=== PATIENT | male | born 1995 | race Hispanic/Latino ===

== ENCOUNTER 2018-12-25 10:45 | Emergency (ER) | payer MEDICAID, OTHER ==
[2018-12-25 10:52] VITALS: BP 136/67
[2018-12-25] MEDS ORDERED: TORADOL IM ONE (11:09)
--- NOTE | 2018-12-25 11:13 | Emergency Department Report ---
ED Back Pain/Injury HPI - General Chief Complaint: Back Pain/Injury Stated Complaint: TAIL BONE EXTREME PAIN Time Seen by Provider: 12/25/18 11:05 Source: patient Limitations: No Limitations - History of Present Illness Initial Comments: Patient is a 23-year-old male who comes to the ER today complaining of tailbone pain. He states that it started to hurt last night after he got off his job. 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 He states he had a previous injury 5 years ago to the tailbone when he fell. He denies having to see a doctor or come to the emergency room for this in the past. Patient states that [id number] medicines have not helped including Aleve, Tylenol and ibuprofen. Patient is ambulatory he is nontoxic. He is afebrile. He has no dysuria or other MD Complaint: back pain -: Gradual, days(s) (1) Similar Symptoms Previously: Yes (previous injury 5 y ago;) Place: work Severity: mild Consistency: constant Improves With: none Worsens With: other (work where he pushes carts) Associated Symptoms: denies other symptoms - Related Data Previous Rx's Medication Instructions Recorded Last Taken Type Naproxen [Naprosyn] 500 mg PO BID PRN #20 tablet 12/25/18 Unknown Rx Allergies Allergy/AdvReac Type Severity Reaction Status Date / Time No Known Allergies Allergy Verified 12/25/18 10:45 ED Review of Systems ROS: Stated complaint: TAIL BONE EXTREME PAIN Other details as noted in HPI Comment: All other systems reviewed and negative Constitutional: denies: chills Eyes: denies: eye pain ENT: denies: throat pain Respiratory: denies: cough Cardiovascular: denies: as per HPI, dyspnea on exertion Endocrine: denies: intolerance to cold Genitourinary: denies: dysuria Musculoskeletal: back pain Neurological: denies: weakness Psychiatric: denies: anxiety Hematological/Lymphatic: denies: as per HPI, easy bleeding ED Past Medical Hx Family history: no significant family history ED Back Pain Physical Exam - Exam General: Vital signs noted. No distress. Alert and acting appropriately. Back/Abdomen: No Abdominal Tenderness, No Perithoracic Tenderness, No Perilumbar Tenderness, No Sacroiliac Tenderness, No Flank Tenderness, No Straight Leg Raise Pain Neuro: Yes Normal Sensation, No Motor Weakness, No Normal DTR's, No Normal Gait ED Course Vital Signs 12/25/18 10:51 Temperature 98.2 F Pulse Rate 94 H Respiratory 16 Rate Blood Pressure 136/67 O2 Sat by Pulse 98 Oximetry ED Medical Decision Making - Medical Decision Making tail bone pain p work last pm he pushes carts for work previous injury to area no new trauma otc not helping with pain ambulatory no s/s cauda equina no dysuria no abd pain VSS without fever no abscess over area toradol IM dc home with dc plan of care Critical care attestation.: If time is entered above; I have spent that time in minutes in the direct care of this critically ill patient, excluding procedure time. ED Disposition Clinical Impression: Tail bone pain Disposition: DC-01 TO HOME OR SELFCARE Is pt being admited?: No Does the pt Need Aspirin: No Condition: Stable Instructions: Arthralgia (ED) Additional Instructions: med as ordered today follow up with Dr Richard next week if persists Prescriptions: Naproxen [Naprosyn] 500 mg PO BID PRN #20 tablet PRN Reason: Pain Referrals: [facility] [Outside] - 3-5 Days Forms: Work/School Release Form(ED) Time of Disposition: 11:11
== END 2018-12-25 11:26 | disposition home or self-care (01) ==
LOC: ED 10:45
DX: M53.3 Sacrococcygeal disorders, not elsewhere classified (principal)
CPT/HCPCS: 96372; 99282; J1885

== ENCOUNTER 2019-03-25 12:01 | Emergency (ER) | payer OTHER ==
--- NOTE | 2019-03-25 12:48 | Emergency Department Report ---
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 Due to findings the following was ordered: ED Disposition for MSE Condition: Stable
[2019-03-25 12:49] VITALS: BP 133/67
--- NOTE | 2019-03-25 12:52 | Emergency Department Report ---
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 This work is causing him pain so he called off work. Comes to ER for work note. - Related Data Previous Rx's Medication Instructions Recorded Last Taken Type Naproxen [Naprosyn] 500 mg PO BID PRN #20 tablet 12/25/18 Unknown Rx Ibuprofen [Motrin 800 MG tab] 800 mg PO Q8HR PRN #20 tablet 04/03/19 Unknown Rx Sulfamethoxazole/Trimethoprim 1 each PO BID #20 tablet 04/03/19 Unknown Rx [Bactrim DS TAB] Allergies Allergy/AdvReac Type Severity Reaction Status Date / Time No Known Allergies Allergy Verified 03/25/19 12:02 ED Review of Systems ROS: Stated complaint: CHEST PAIN Other details as noted in HPI Comment: All other systems reviewed and negative ED Past Medical Hx - Past Medical History Medical history: no medical history Family history: no significant family history ED Back Pain Physical Exam - Exam General: Vital signs noted. No distress. Alert and acting appropriately. - Head Head exam: Present: atraumatic, normocephalic - Eye Eye exam: Present: normal appearance, EOMI. Absent: nystagmus - ENT ENT exam: Present: normal exam, normal orophraynx, mucous membranes moist, normal external ear exam, no lymphadenopathy - Neck Neck exam: Present: normal inspection, full ROM. Absent: tenderness, meningismus - Respiratory Respiratory exam: Present: normal lung sounds bilaterally. Absent: respiratory distress, wheezes, rales, rhonchi, stridor, chest wall tenderness, accessory muscle use, decreased breath sounds, prolonged expiratory - Cardiovascular Cardiovascular Exam: Present: regular rate, normal rhythm, normal heart sounds. Absent: bradycardia, tachycardia, irregular rhythm, systolic murmur, diastolic murmur, rubs, gallop, JVD, edema - GI/Abdominal GI/Abdominal exam: Present: soft, non tender on light and deep palpation. Absent: distended, tenderness, guarding, rebound, rigid, pulsatile mass - Rectal Rectal exam: Present: deferred - Extremities Exam Extremities exam: Present: normal inspection, full ROM, other (2+ pulses noted in the bilateral upper extremities. Bilateral lower extremities with 2+ DP bilateral. Full ROM. Absent: calf tenderness - Back Exam Back exam: Present: normal inspection, full ROM. Absent: tenderness, CVA tenderness (R), CVA tenderness (L), paraspinal tenderness, vertebral tenderness - Neurological Exam Neurological exam: Present: alert, oriented X3, normal gait, other (Extraocular movements intact. Tongue midline. No facial droop. Facial sensation intact to light touch in the V1, V2, V3 distribution bilaterally. 5 and 5 strength in 4 extremities.. Sensation is intact to light touch in 4 extremities.). Absent: motor sensory deficit - Psychiatric Psychiatric exam: normal affect and mood - Skin Skin exam: Present: warm, dry, intact, normal color. Absent: rash ED Medical Decision Making - Medical Decision Making Vital Signs 03/25/19 12:45 Temperature 98.4 F Pulse Rate 78 Respiratory 18 Rate Blood Pressure 133/67 O2 Sat by Pulse 98 Oximetry PAIN WITH PUSHING CARTS AT WORK NO HX NO DRUGS NON CARDIAC NO FAM HX CALLED OFF WORK today and needs a work note. DC HOME WITH PCP FOLLOW UP Critical care attestation.: If time is entered above; I have spent that time in minutes in the direct care of this critically ill patient, excluding procedure time. ED Disposition Clinical Impression: Musculoskeletal chest pain Disposition: DC-01 TO HOME OR SELFCARE Is pt being admited?: No Does the pt Need Aspirin: No Condition: Stable Instructions: Costochondritis (ED) Additional Instructions: EXERCISE WE DISCUSSED MOTRIN OR TYLENOL FOR PAIN FOLLOW UP WITH PCP SEE BELOW FOR REFERRAL HYDRATE WELL WITH WATER Referrals: [facility] [Outside] - 3-5 Days Forms: Work/School Release Form(ED) Time of Disposition: 12:51
== END 2019-03-25 13:06 | disposition home or self-care (01) ==
LOC: ED 12:01
DX: R07.89 Other chest pain (principal)

== ENCOUNTER 2019-04-03 15:49 | Emergency (ER) | payer SELFPAY ==
[2019-04-03 15:53] VITALS: BP 122/59
--- NOTE | 2019-04-03 16:10 | Emergency Department Report ---
Blank Doc - Documentation Documentation: pt presents for a "cyst" to the gluteal area that began two days ago has had before but opened on its own previously no drainage no fever no PMHx no allergies to meds +smoker non drinker no drug use vitals are normal
--- NOTE | 2019-04-03 17:37 | Emergency Department Report ---
Abscess Boil HPI - HPI Chief Complaint: Skin/Abscess/Foreign Body Stated Complaint: CYST ON LOWER BACK Time Seen by Provider: 04/03/19 16:08 Duration: 3 Days Location: Sacral/Pilonidal Severity: Mild History: Yes Pain, No Fever, No Purulent Drainage, No Numbness, No Foreign Body, No Previous History, No Insect Bite HPI: This is a 24-year-old male who presents with a painful abscess to pilonidal region for 2-3 days. Patient reports a prior history a few months ago which drained on his own. Reports pain is worse with sitting or movement. He denies drainage, fever, or possible insect bite. Home Medications: Previous Rx's Medication Instructions Recorded Last Taken Type Naproxen [Naprosyn] 500 mg PO BID PRN #20 tablet 12/25/18 Unknown Rx Ibuprofen [Motrin 800 MG tab] 800 mg PO Q8HR PRN #20 tablet 04/03/19 Unknown Rx Sulfamethoxazole/Trimethoprim 1 each PO BID #20 tablet 04/03/19 Unknown Rx [Bactrim DS TAB] Allergies/Adverse Reactions: Allergies Allergy/AdvReac Type Severity Reaction Status Date / Time No Known Allergies Allergy Verified 03/25/19 12:02 ED Review of Systems ROS: Stated complaint: CYST ON LOWER BACK Other details as noted in HPI Constitutional: denies: chills, fever Respiratory: denies: cough, shortness of breath, wheezing Cardiovascular: denies: chest pain, palpitations Gastrointestinal: denies: abdominal pain, nausea, diarrhea Skin: lesions (abscess to pilonidal). denies: rash Neurological: denies: headache, weakness, paresthesias Psychiatric: denies: anxiety, depression ED Past Medical Hx - Past Medical History Previous Medical History?: No - Surgical History Past Surgical History?: No - Social History Smoking Status: Current Every Day Smoker Substance Use Type: None - Medications Home Medications: Home Medications Medication Instructions Recorded Confirmed Last Taken Type Naproxen [Naprosyn] 500 mg PO BID PRN #20 tablet 12/25/18 Unknown Rx Ibuprofen [Motrin 800 MG tab] 800 mg PO Q8HR PRN #20 tablet 04/03/19 Unknown Rx Sulfamethoxazole/Trimethoprim 1 each PO BID #20 tablet 04/03/19 Unknown Rx [Bactrim DS TAB] ED Abscess Boil Physical Exam - Exam General: Vital signs noted. No distress. Alert and acting appropriately. Front/Back of Body, Lg (Color): 1 - 1 cm nonfluctant abscess to pilonidal area, tenderness, surrounding erythema, no active drainage Size: 1 cm Exam: Yes Surrounding Cellulites/Erythema, Yes Normal Neurologic Exam, Yes Normal Circulation, No Tenderness, No Fluctuance, No Lymphangitis, No Cre pitation, No Heart Murmur ED Course Vital Signs 04/03/19 15:52 Temperature 98.5 F Pulse Rate 98 H Respiratory 16 Rate Blood Pressure 122/59 O2 Sat by Pulse 100 Oximetry Critical care attestation.: If time is entered above; I have spent that time in minutes in the direct care of this critically ill patient, excluding procedure time. ED Medical Decision Making - Medical Decision Making Patient is stable and examined by me. Prior history of pilonidal abscess a few months ago which drained on his own. The abscess is nonfluctuant and no cyst pockets palpated. I and D not indicated at this time. Patient will be treated with antibiotics and warm compresses or soaks. No acute signs of distress noted. Given ibuprofen once in ER. Discussed plan to start bactrim DS and ibuprofen with patient. Educated patient on follow up plan to have wound reass essed in 2-3 days. Patient agrees to ED plan of care. Discharged home and follow up with PCP in 2-3 days. ED Disposition Clinical Impression: Pilonidal abscess Disposition: TO HOME OR SELFCARE Is pt being admited?: No Does the pt Need Aspirin: No Condition: Stable Instructions: Abscess (ED) Additional Instructions: Complete full round of bactrim DS antibiotic as prescribed. Follow up with PCP or ER in 2-3 days. Return to ER if foul smelling discharge, swelling, or severe pain to wound. Prescriptions: Sulfamethoxazole/Trimethoprim [Bactrim DS TAB] 1 each PO BID #20 tablet Ibuprofen [Motrin 800 MG tab] 800 mg PO Q8HR PRN #20 tablet PRN Reason: Pain , Severe (7-10) Referrals: [facility] [Outside] - 3-5 Days [facility] [Outside] - 3-5 Days [facility] [Outside] - 3-5 Days Time of Disposition: 17:39
[2019-04-03] MEDS ORDERED: IBUPROFEN PO ONE (17:39)
== END 2019-04-03 17:50 | disposition home or self-care (01) ==
LOC: ED 15:49
DX: L05.01 Pilonidal cyst with abscess (principal)
CPT/HCPCS: 99282

== ENCOUNTER 2019-07-17 10:36 | Emergency (ER) | payer OTHER ==
[2019-07-17 10:45] VITALS: BP 132/68
--- NOTE | 2019-07-17 11:32 | Emergency Department Report ---
ED Headache HPI - General Chief Complaint: Headache Stated Complaint: HEADACHE Time Seen by Provider: 07/17/19 11:14 Source: patient - History of Present Illness Initial Comments: This is a 24-year-old male here report that he has headache that is throbbing to the back of his head. Patient admits to having 2 shots of [place] last night and said that he was a little bit tipsy. Pain is 8 out of 10 and throbbing and both sides of head at the back. Reports some nausea. Pain is intermittent and he said pain started this morning when he woke up. He has had similar pain but not in the same spot and not as bad as today. Denies any head injury or neck pain or stiffness. Denies any vomiting. Denies any dizziness or blurred vision. He said he did not hit his head or fall. Timing/Duration: 4-6 hours, waxing and waning, other (he reports that he had 2 shots of penicillin last night and woke up this morning with headache) Quality: severe, achy, throbbing Head Injury Location: occipital Recent Head Trauma: occasional headaches Modifying Factors: improves with: movement Associated Symptoms: nausea/vomiting (nausea) Allergies/Adverse Reactions: Allergies No Known Allergies Allergy (Verified 03/25/19 12:02) Home Medications: Ambulatory Orders Naproxen [Naprosyn] 500 mg PO BID PRN #20 tablet 12/25/18 Ibuprofen [Motrin 800 MG tab] 800 mg PO Q8HR PRN #20 tablet 04/03/19 Sulfamethoxazole/Trimethoprim [Bactrim DS TAB] 1 each PO BID #20 tablet 04/03/19 ED Review of Systems ROS: Stated complaint: HEADACHE Other details as noted in HPI Constitutional: denies: chills, malaise Eyes: denies: eye pain, eye discharge, vision change ENT: denies: ear pain, throat pain, epistaxis, congestion Respiratory: denies: cough, shortness of breath, SOB with exertion, SOB at rest, stridor, wheezing Cardiovascular: denies: chest pain, palpitations, dyspnea on exertion, edema, syncope Gastrointestinal: nausea. denies: vomiting, hematemesis, melena, hematochezia Genitourinary: denies: hematuria Musculoskeletal: denies: back pain, joint swelling, arthralgia Skin: denies: rash Neurological: headache. denies: weakness, numbness, paresthesias, confusion, abnormal gait, vertigo ED Past Medical Hx - Past Medical History Previous Medical History?: Yes Additional medical history: Occasional headache - Surgical History Past Surgical History?: No - Family History Family history: no significant - Social History Smoking Status: Current Every Day Smoker Substance Use Type: Alcohol (socially) - Medications Home Medications: Home Medications Medication Instructions Recorded Confirmed Last Taken Type Naproxen [Naprosyn] 500 mg PO BID PRN #20 tablet 12/25/18 Unknown Rx Ibuprofen [Motrin 800 MG tab] 800 mg PO Q8HR PRN #20 tablet 04/03/19 Unknown Rx Sulfamethoxazole/Trimethoprim 1 each PO BID #20 tablet 04/03/19 Unknown Rx [Bactrim DS TAB] ED Physical Exam - General Limitations: No Limitations General appearance: alert, in no apparent distress - Head Head exam: Present: atraumatic, normocephalic, normal inspection - Expanded Head Exam Expanded Head exam: Absent: laceration, abrasion, contusion, hematoma, racoon eyes, maldonado's sign, general tenderness, tenderness of temporal artery, CSF rhinorrhea, CSF otorrhea - Eye Eye exam: Present: normal appearance, PERRL, EOMI. Absent: nystagmus, periorbital swelling, periorbital tenderness Pupils: Present: normal accommodation - ENT ENT exam: Present: normal exam, normal orophraynx, mucous membranes moist, TM's normal bilaterally, normal external ear exam - Neck Neck exam: Present: normal inspection, full ROM, other (no C-spine tenderness). Absent: tenderness, meningismus, lymphadenopathy - Respiratory Respiratory exam: Present: normal lung sounds bilaterally. Absent: respiratory distress, chest wall tenderness - Cardiovascular Cardiovascular Exam: Present: normal rhythm, tachycardia (tachycardia), normal heart sounds. Absent: systolic murmur, diastolic murmur - GI/Abdominal GI/Abdominal exam: Present: soft, normal bowel sounds. Absent: distended, tenderness, organomegaly - Extremities Exam Extremities exam: Present: normal inspection, full ROM, normal capillary refill, other (No cce. + 2 pulses in all extremities, no neurovascular compromise). Absent: tenderness, pedal edema, joint swelling, calf tenderness - Back Exam Back exam: Present: normal inspection, full ROM, other (ambulates without any difficulties). Absent: tenderness, muscle spasm, paraspinal tenderness, vertebral tenderness, rash noted - Neurological Exam Neurological exam: Present: alert, oriented X3, normal gait, reflexes normal. Absent: motor sensory deficit - Expanded Neurological Exam Expanded Neurological exam: Absent: innattentive, memory loss-remote event, memory loss- recent event, ataxia, receptive aphasia, expressive aphasia, total aphasia, tremor, protecting the airway Patient oriented to: Present: person, place, time Speech: Present: fluid speech Cranial nerves: EOM's Intact: Normal, Gag Reflex: Normal, Tongue Deviation: Normal, Nystagmus: Normal, Facial Sensation: Normal Cerebellar function: Finger to Nose: Normal, Romberg: Normal Upper motor neuron: Pronator Drift: Normal Sensory exam: Upper Extremity Light Touch: Normal, Upper Extremity Temperature: Normal, Lower Extremity Light Touch: Normal, Lower Extremity Temperature: Normal Motor strength exam: RUE: 5, LUE: 5, RLE: 5, LLE: 5 DTR: bicep (R): 2+, bicep (L): 2+, tricep (R): 2+, tricep (L): 2+, knee (R): 2+, knee (L): 2+, ankle (R): 2+, ankle (L): 2+ Best Eye Response ([place]): (4) open spontaneously Best Motor Response ([place]): (6) obeys commands Best Verbal Response ([place]): (5) oriented [place] Total: 15 - Psychiatric Psychiatric exam: Present: normal affect - Skin Skin exam: Present: warm, dry, intact, normal color. Absent: rash ED Course Vital Signs 07/17/19 10:43 Temperature 98.2 F Pulse Rate 103 H Respiratory 18 Rate Blood Pressure 132/68 - Reevaluation(s) Reevaluation #1: 07/17/19 12:45 Patient received Tylenol 975 mg emergency room for headache which she said his headache has reduced to 3/10. Reevaluation #2: 07/17/19 13:00 Pt left AMA without d/c nfo or CT scan. See AMA ED Medical Decision Making - Medical Decision Making This is a 24-year-old male who came to the emergency room complaining that after having 2 shots of headaches yesterday he woke up with a headache this morning and dislocated to his occipital skull area and it is throbbing and aching and he has had headache in the past but not as bad. CT scan of the head and brain was ordered and patient refused CT scan because he said his headache was getting better. He was given Tylenol 975 mg emergency room. Neurological exam done and is intact. No abnormality of head exam. Please see physical exam note for details. Patient eventually said that he wanted a work note and he refuses CT scan and then refused to wait for discharge paperwork. Patient signed AMA and left. I discussed with him that if his headache worsen to return to the emergency room RAMIRO. - Differential Diagnosis intracranial VS extracranial abnormality, simple FRAZIER, sinusitis, rhinitis Critical care attestation.: If time is entered above; I have spent that time in minutes in the direct care of this critically ill patient, excluding procedure time. ED Disposition Clinical Impression: Headache Qualifiers: Headache type: unspecified Headache chronicity pattern: acute headache Intractability: not intractable Qualified Code(s): R51 - Headache Disposition: DC- LEFT AGAINST MED ADVICE Is pt being admited?: No Does the pt Need Aspirin: No Condition: Stable Forms: AMA Form
[2019-07-17] MEDS ORDERED: ZOFRAN ORAL LIQ PO ONE (11:39)
[2019-07-17] MEDS ORDERED: TYLENOL PO ONE (11:39)
[2019-07-17] MEDS ORDERED: ZOFRAN ODT PO ONE (11:47)
== END 2019-07-17 13:48 | disposition left against medical advice (07) ==
LOC: ED 10:36
DX: R51 Headache (principal); R11.2 Nausea with vomiting, unspecified; F17.200 Nicotine dependence, unspecified, uncomplicated; Z79.899 Other long term (current) drug therapy
CPT/HCPCS: 99282; Q0162

== ENCOUNTER 2019-07-31 11:16 | Emergency (ER) | payer SELFPAY ==
[2019-07-31 11:32] VITALS: BP 127/70
--- NOTE | 2019-07-31 11:37 | Emergency Department Report ---
Chief Complaint: Abdominal Pain Stated Complaint: FLU LIKE SYM Time Seen by Provider: 07/31/19 11:29 - HPI History of Present Illness: 24 y/o male comes in c/o of abd pains since yesterday. He received Flu vaccine 1.5 weeks ago. Has a slight headache. He wants a work excuse. No abd pain. - Exam Vital Signs: Vital Signs 07/31/19 11:23 Temperature 97.8 F Pulse Rate 90 Respiratory 18 Rate Blood Pressure 127/70 O2 Sat by Pulse 98 Oximetry Physical Exam: AxO times 4 NAD Normal gait Heart: RRR Lungs: CTA AbD: Soft non tender Skin: normal color dry MSE screening note: Focused history and physical exam performed. Due to findings the following was ordered: Patient is recommenced OTC Tylenol and or Ibuprofen. Increase fluid intake. ED Disposition for MSE Disposition: MED SCREENING EXAM-LEFT Is pt being admited?: No Does the pt Need Aspirin: No Condition: Stable Referrals: PRIMARY CARE, [Primary Care Provider] - 3-5 Days Forms: Work/School Release Form(ED)
== END 2019-07-31 11:51 | disposition left against medical advice (07) ==
LOC: ED 11:16
DX: J00 Acute nasopharyngitis [common cold] (principal); Z53.21 Procedure and treatment not carried out due to patient leaving prior to being seen by health care provider

== ENCOUNTER 2020-06-09 14:47 | Emergency (ER) | payer SELFPAY ==
[2020-06-09 15:01] VITALS: BP 141/79
--- NOTE | 2020-06-09 15:18 | Emergency Department Report ---
Chief Complaint: Urogenital-Male Stated Complaint: STD Time Seen by Provider: 06/09/20 15:15 - HPI History of Present Illness: Patient is a 25-year-old male who presents emergency room with complaints of an STD. He states he has had penile discharge and dysuria for 2 days. He denies any abdominal pain, nausea, vomiting, diarrhea, fever, pain or swelling in the testicles, urinary retention. Patient states he has a past medical history of chlamydia last year. He denies any allergies to medications. Vitals are stable Patient is presenting with STD-like symptoms He has no abdominal pain, nausea, vomiting, diarrhea, fever, pain or swelling in the testicles, urinary retention Patient will be referred to clinics or the health department Discussed strict return precautions with patient Medical screening performed and there is no threat to life or limb at this time - Exam Vital Signs: Vital Signs 06/09/20 14:58 Temperature 98.9 F Pulse Rate 96 H Respiratory 18 Rate Blood Pressure 141/79 O2 Sat by Pulse 100 Oximetry MSE screening note: Focused history and physical exam performed. ED Disposition for MSE Clinical Impression: Concern about STD in male without diagnosis Disposition: Z-07 MED SCREENING EXAM-LEFT Is pt being admited?: No Does the pt Need Aspirin: No Condition: Stable Instructions: Safe Sex (ED), Sexually Transmitted Diseases (ED) Additional Instructions: Please follow-up with the health department or clinic for full STD panel and treatment as appropriate. Please have any any partner tested and treated as well. Avoid sexual intercourse. Return to emergency room for any new or worsening symptoms. [facility] Address: [address] [place] [id number] Referrals: [facility] [Outside] - 2-3 Days [facility] [Provider Group] - 2-3 Days Time of Disposition: 15:16 Print Language: KAZAKH
== END 2020-06-09 15:30 | disposition left against medical advice (07) ==
LOC: ED 14:47
DX: A64 Unspecified sexually transmitted disease (principal); Z53.21 Procedure and treatment not carried out due to patient leaving prior to being seen by health care provider